=== PATIENT | female | born 1970 | race Caucasian/White ===

== ENCOUNTER 2018-01-06 12:30 | Inpatient (IN) | payer OTHER ==
[~2018-01-06 12:30] MED LIST: ALPRAZOLAM ER2 MG PO; AMITRIPTYLINE100 MG PO; TENCON TABLET1 TAB PO; TYLENOL-CODEINE1 TAB PO; [UNRECOGNIZED DRUG - OTHER] PO
[2018-01-08] MEDS ORDERED: [UNRECOGNIZED DRUG - OTHER] PO (14:02)
[2018-01-08] MEDS ORDERED: MAXALT10 MG PO (14:03)
[2018-01-14] MEDS ORDERED: RIZATRIPTAN10 MG PO (08:36)
[2018-01-14] MEDS ORDERED: IMITREX100 MG PO (08:37)
== END 2018-01-14 09:49 | disposition home or self-care (01) | DRG 743 ==
LOC: ADM 12:30 → EDSTATUS 01-08 12:45 → O/R 01-13 05:30 → SURG 01-13 07:00 → OB/GYN 01-13 11:36 → SURG 01-13 12:45 → OB/GYN 01-14 09:49
PROVIDERS: Obstetrics & Gynecology Gynecology
PROC: 0UT74ZZ Resection of Bilateral Fallopian Tubes, Percutaneous Endoscopic Approach (ICD-10-PCS; 2018-01-13)
PROC: 0UT04ZZ Resection of Right Ovary, Percutaneous Endoscopic Approach (ICD-10-PCS; 2018-01-13)
PROC: 0UT94ZZ Resection of Uterus, Percutaneous Endoscopic Approach (ICD-10-PCS; principal; 2018-01-13 07:00)
DX: N80.0 Endometriosis of uterus (principal); N80.1 Endometriosis of ovary; N72 Inflammatory disease of cervix uteri; N84.0 Polyp of corpus uteri